=== PATIENT | female | born 1945 | race Hispanic/Latino ===

== ENCOUNTER 2017-09-06 08:04 | Inpatient (IN) | payer OTHER, MEDICARE ==
[~2017-09-06] VITALS: Ht 157.5 cm; Wt 63.8 kg
[~2017-09-06 08:04] MED LIST: AMLO1CAP12 PO; FOLI1TAB61 PO; LEVOTHYROXINE PO; PRAVASTATIN PO
[2017-09-06 08:49] LABS: BASOPHILS % (AUTO) 0.2 % (0.0-5.0); EOSINOPHILS % (AUTO) 0.5 % (0.0-8.0); HEMATOCRIT 35.5 % (36-48); LYMPHOCYTES % (AUTO) 14.7 % (21.0-51.0); MEAN CORPUSCULAR HEMOGLOBIN 31.3 pg (27.0-33.0); MEAN CORPUSCULAR HGB CONC 33.4 g/dL (32.0-36.0); MEAN CORPUSCULAR VOLUME 93.7 fL (79-99); MONOCYTES % (AUTO) 7.7 % (3.0-13.0); NEUTROPHILS % (AUTO) 76.9 % (40.0-77.0); PLATELET COUNT (AUTO) 251 K/uL (130-400); RED BLOOD CELL COUNT(AUTO) 3.79 MIL/uL (4.00-5.50); RED CELL DISTRIBUTION WIDTH 13.4 % (11.0-15.5); WHITE BLOOD COUNT (AUTO) 12.7 K/uL (4.8-10.8)
[2017-09-06 08:57] LABS: CREATININE 1.5 mg/dL (0.5-1.5); POTASSIUM 4.2 mmol/L (3.5-5.1)
[2017-09-06 09:00] LABS: INR 1.06 (0.85-1.15); PARTIAL THROMBOPLASTIN TIME 26.1 SEC (26.3-35.5); PROTHROMBIN TIME 11.1 SEC (9.6-11.6)
[2017-09-06 09:13] LABS: ALBUMIN 3.7 g/dL (3.5-5.0); BILIRUBIN,TOTAL 0.2 mg/dL (0.2-1.0); CREATINE KINASE MB 0.5 ng/mL (0.5-3.6); TOTAL PROTEIN, SERUM 7.9 g/dL (6.0-8.3)
[2017-09-06] MEDS ORDERED: MORPHINE SULFATE 4 MG/1ML SYG ONE (09:23)
[2017-09-06] MEDS ORDERED: ASPIRIN 325 MG TABLET ONE (09:23)
[2017-09-06] MEDS ORDERED: LACTATED RINGERS 1000ML 1,000 ML IV ONE (09:36)
[2017-09-06] MEDS ORDERED: DEXTROSE 5 % AND 0.9 % NACL 1,000 ML IV ONE (10:49)
[2017-09-06] MEDS ORDERED: ZOSYN 3.375GM+NS 50ML 50 ML IV ONE (10:49)
[2017-09-06 15:55] VITALS: BP 125/59
[2017-09-06] MEDS ORDERED: HYDRALAZINE HCL 20 MG/ML VIAL IV PRN (18:30)
[2017-09-06] MEDS ORDERED: IOPAMIDOL-370 75 ML VIAL IV ONE (19:46)
[2017-09-06 19:57] VITALS: BP 108/56
[2017-09-06] MEDS ORDERED: MORPHINE SULFATE 2 MG/ML 1ML SYG IVP PRN (20:30)
[2017-09-06] MEDS ORDERED: ONDANSETRON HCL 4 MG/2 ML VIAL IVP PRN (20:30)
[2017-09-06] MEDS: SODIUM CHLORIDE 0.9% 1000ML 1,000 ML IV SCH (21:07)
[2017-09-06] MEDS: ZOSYN 3.375GM+NS 50ML 50 ML IV SCH (22:53)
[2017-09-06] MEDS ORDERED: AMLO-128 PO (23:14)
[2017-09-06] MEDS ORDERED: VIT1TABL75 PO (23:14)
[2017-09-06] MEDS ORDERED: PRAV20TA4 PO (23:14)
[2017-09-06 23:54] VITALS: BP 102/55
[2017-09-07 04:00] VITALS: BP 118/61
[2017-09-07 05:08] LABS: HEMATOCRIT 33.1 % (36-48); MEAN CORPUSCULAR HEMOGLOBIN 32.9 pg (27.0-33.0); MEAN CORPUSCULAR HGB CONC 34.9 g/dL (32.0-36.0); MEAN CORPUSCULAR VOLUME 94.2 fL (79-99); PLATELET COUNT (AUTO) 247 K/uL (130-400); RED BLOOD CELL COUNT(AUTO) 3.52 MIL/uL (4.00-5.50); RED CELL DISTRIBUTION WIDTH 13.6 % (11.0-15.5); WHITE BLOOD COUNT (AUTO) 11.1 K/uL (4.8-10.8)
[2017-09-07 05:31] LABS: ALBUMIN 3.2 g/dL (3.5-5.0); BILIRUBIN,TOTAL 0.4 mg/dL (0.2-1.0); CREATININE 1.4 mg/dL (0.5-1.5); MAGNESIUM 2.3 mg/dL (1.80-2.40); PHOSPHORUS 4.3 mg/dL (2.5-4.9); POTASSIUM 4.4 mmol/L (3.5-5.1); THYROID STIMULATING HORMONE 3.2 uIU/mL (0.36-3.74); TOTAL PROTEIN, SERUM 7.1 g/dL (6.0-8.3)
[2017-09-07] MEDS: LEVOTHYROXINE 25 MCG TABLET PO SCH (06:23)
[2017-09-07 07:53] VITALS: BP 113/56
[2017-09-07] MEDS: SODIUM CHLORIDE 0.9% 1000ML 1,000 ML IV SCH ×5 (07:59→16:16)
[2017-09-07 11:19] VITALS: BP 119/63
[2017-09-07] MEDS: ZOSYN 3.375GM+NS 50ML 50 ML IV SCH ×2 (11:21→22:57)
[2017-09-07 16:20] VITALS: BP 121/60
[2017-09-07 20:24] VITALS: BP 111/56
[2017-09-08] VITALS (7 sets, daily range): BP systolic 110–122; BP diastolic 61–71
[2017-09-08] MEDS: LEVOTHYROXINE 25 MCG TABLET PO SCH (04:56)
[2017-09-08 05:18] LABS: HEMATOCRIT 34.2 % (36-48); MEAN CORPUSCULAR HEMOGLOBIN 31.5 pg (27.0-33.0); MEAN CORPUSCULAR HGB CONC 33.2 g/dL (32.0-36.0); MEAN CORPUSCULAR VOLUME 94.8 fL (79-99); NUCLEATED RED BLOOD CELLS 0.1 % (0.0-0.19); PLATELET COUNT (AUTO) 242 K/uL (130-400); RED BLOOD CELL COUNT(AUTO) 3.61 MIL/uL (4.00-5.50); RED CELL DISTRIBUTION WIDTH 13.4 % (11.0-15.5); WHITE BLOOD COUNT (AUTO) 10.4 K/uL (4.8-10.8)
[2017-09-08 05:36] LABS: CREATININE 1.4 mg/dL (0.5-1.5); POTASSIUM 4.2 mmol/L (3.5-5.1)
[2017-09-08 05:40] LABS: LYMPHOCYTES % (MANUAL) 10 % (22-44); MAN.DIFF COMMENT-IMPRESSION MANUAL DIFFERENTIAL; MONOCYTES % (MANUAL) 3 % (2-9); PLATELET MORPHOLOGY COMMENT ADEQUATE; SEGMENTED NEUTROPHILS % 87 % (40-70)
[2017-09-08] MEDS: ENOXAPARIN SODIUM 40 MG/0.4 ML SYRINGE SQ SCH (08:13)
[2017-09-08] MEDS: ZOSYN 3.375GM+NS 50ML 50 ML IV SCH ×2 (11:15→23:19)
[2017-09-08] MEDS: SODIUM CHLORIDE 0.9% 1000ML 1,000 ML IV SCH (16:34)
[2017-09-09 03:00] VITALS: BP 116/71
[2017-09-09] MEDS: LEVOTHYROXINE 25 MCG TABLET PO SCH (06:10)
[2017-09-09 07:39] VITALS: BP 123/57
[2017-09-09] MEDS: ENOXAPARIN SODIUM 40 MG/0.4 ML SYRINGE SQ SCH (08:56)
[2017-09-09 10:25] LABS: CREATININE 1.3 mg/dL (0.5-1.5); POTASSIUM 4.1 mmol/L (3.5-5.1)
[2017-09-09 11:16] VITALS: BP 103/59
[2017-09-09] MEDS: ZOSYN 3.375GM+NS 50ML 50 ML IV SCH ×2 (11:22→23:33)
[2017-09-09 16:13] VITALS: BP 122/69
[2017-09-09 20:00] VITALS: BP 126/75
[2017-09-09] MEDS: SODIUM CHLORIDE 0.9% 1000ML 1,000 ML IV SCH ×2 (20:45→23:33)
[2017-09-10] VITALS: BP 114/62
[2017-09-10 04:00] VITALS: BP 117/65
[2017-09-10 04:42] LABS: HEMATOCRIT 33.4 % (36-48); MEAN CORPUSCULAR HEMOGLOBIN 32.3 pg (27.0-33.0); MEAN CORPUSCULAR HGB CONC 34.5 g/dL (32.0-36.0); MEAN CORPUSCULAR VOLUME 93.5 fL (79-99); PLATELET COUNT (AUTO) 225 K/uL (130-400); RED BLOOD CELL COUNT(AUTO) 3.57 MIL/uL (4.00-5.50); RED CELL DISTRIBUTION WIDTH 13.1 % (11.0-15.5); WHITE BLOOD COUNT (AUTO) 8.3 K/uL (4.8-10.8)
[2017-09-10 04:53] LABS: CREATININE 1.2 mg/dL (0.5-1.5)
[2017-09-10] MEDS: LEVOTHYROXINE 25 MCG TABLET PO SCH (05:26)
[2017-09-10 07:20] VITALS: BP 141/60
[2017-09-10] MEDS: ZOSYN 3.375GM+NS 50ML 50 ML IV SCH ×2 (10:37→22:55)
[2017-09-10] MEDS: ENOXAPARIN SODIUM 40 MG/0.4 ML SYRINGE SQ SCH (10:37)
[2017-09-10 11:00] VITALS: BP 134/63
[2017-09-10 16:00] VITALS: BP 142/71
[2017-09-10 19:41] VITALS: BP 127/60
[2017-09-10] MEDS: SODIUM CHLORIDE 0.9% 1000ML 1,000 ML IV SCH (22:56)
[2017-09-11] VITALS: BP 120/61
[2017-09-11 04:00] VITALS: BP 120/68
[2017-09-11] MEDS: SODIUM CHLORIDE 0.9% 1000ML 1,000 ML IV SCH (04:12)
[2017-09-11 04:47] LABS: HEMATOCRIT 31.1 % (36-48); MEAN CORPUSCULAR HEMOGLOBIN 32.7 pg (27.0-33.0); MEAN CORPUSCULAR VOLUME 93.2 fL (79-99); PLATELET COUNT (AUTO) 217 K/uL (130-400); RED BLOOD CELL COUNT(AUTO) 3.34 MIL/uL (4.00-5.50); RED CELL DISTRIBUTION WIDTH 12.9 % (11.0-15.5); WHITE BLOOD COUNT (AUTO) 7.9 K/uL (4.8-10.8)
[2017-09-11 04:48] LABS: BILIRUBIN,TOTAL 0.3 mg/dL (0.2-1.0); CREATININE 1.3 mg/dL (0.5-1.5); POTASSIUM 3.8 mmol/L (3.5-5.1); TOTAL PROTEIN, SERUM 6.9 g/dL (6.0-8.3)
[2017-09-11] MEDS: LEVOTHYROXINE 25 MCG TABLET PO SCH (05:54)
[2017-09-11 08:08] VITALS: BP 142/69
[2017-09-11] MEDS: ENOXAPARIN SODIUM 40 MG/0.4 ML SYRINGE SQ SCH (08:46)
[2017-09-11 11:22] VITALS: BP 108/70
== END 2017-09-11 14:15 | disposition home or self-care (01) | DRG 440 ==
LOC: EDH 08:04 → EDHIP 10:21 → OBSVTOIN 10:21 → 4BH 16:45
PROVIDERS: ADMIT Internal Medicine Critical Care Medicine; ATTEND Internal Medicine Critical Care Medicine
DX: K85.90 Acute pancreatitis without necrosis or infection, unspecified (principal); R07.89 Other chest pain; E03.9 Hypothyroidism, unspecified; E78.5 Hyperlipidemia, unspecified; I10 Essential (primary) hypertension; E78.00 Pure hypercholesterolemia, unspecified; Z88.8 Allergy status to other drugs, medicaments and biological substances; Z88.2 Allergy status to sulfonamides; Z90.710 Acquired absence of both cervix and uterus
CPT/HCPCS: 36415; 71045; 71275; 76705; 80048; 80053; 80061; 82150; 82550; 82553; 83605; 83690; 83735; 84100; 84443; 84484; 85025; 85027; 85378; 85610; 85730; 93005; 93970; J1650; J2270; J2543; J7030; J7042; J7120; Q9967

== ENCOUNTER → 2017-09-27 | Outpatient (CLI) | payer OTHER, MEDICARE ==
[~2017-09-27] MED LIST changes: +AMLO-128 PO; -AMLO1CAP12 PO; -FOLI1TAB61 PO; +PRAV20TA4 PO; -PRAVASTATIN PO; +VIT1TABL75 PO
== END | disposition home or self-care (01) ==
LOC: OIH 07:53
PROVIDERS: ATTEND Family Medicine
DX: Z09 Encounter for follow-up examination after completed treatment for conditions other than malignant neoplasm (principal); I70.0 Atherosclerosis of aorta
CPT/HCPCS: 74150

== ENCOUNTER → 2021-11-03 | Outpatient (CLI) | payer OTHER ==
[~2021-11-03] MED LIST changes: -AMLO-128 PO; +AMLO-142 PO; +LEVO500T2 PO; +METR-172 PO
== END | disposition home or self-care (01) ==
LOC: RAH 13:33
PROVIDERS: ATTEND Internal Medicine Cardiovascular Disease
DX: Z13.6 Encounter for screening for cardiovascular disorders (principal); R07.9 Chest pain, unspecified
CPT/HCPCS: 75571

== ENCOUNTER 2024-09-11 09:50 | Observation (INO) | payer OTHER ==
[~2024-09-11] VITALS: Ht 154.9 cm; Wt 59.0 kg
[~2024-09-11 09:50] MED LIST changes: -PRAV20TA4 PO; +PRAV20TA59 PO
--- NOTE | 2024-09-11 10:11 | EKG ---
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
[2024-09-11] MEDS: TETRACAINE HCL 0.5% 4 ML OPHTH SOLN OP STA (10:14)
[2024-09-11 10:15] LABS: BASOPHILS # (AUTO) 0.02 K/uL (0.00-0.20); BASOPHILS % (AUTO) 0.2 % (0.0-5.0); EOSINOPHILS # (AUTO) 0.29 K/uL (0.00-0.70); EOSINOPHILS % (AUTO) 3.6 % (0.0-8.0); HEMATOCRIT 31.9 % (36-48); IMMATURE GRANULOCYTE ABSOLUTE 0.03 K/uL (0-1); LYMPHOCYTES # (AUTO) 1.2 K/uL (1.0-4.8); LYMPHOCYTES % (AUTO) 15.4 % (21.0-51.0); MEAN CORPUSCULAR HGB CONC 33.2 g/dL (32.0-36.0); MEAN CORPUSCULAR VOLUME 96.4 fL (79-99); MONOCYTES # (AUTO) 0.6 K/uL (0.1-1.0); NEUTROPHILS # (AUTO) 5.8 K/uL (1.8-7.7); NEUTROPHILS % (AUTO) 72.4 % (40.0-77.0); PLATELET COUNT (AUTO) 164 K/uL (130-400); RED BLOOD CELL COUNT(AUTO) 3.31 MIL/uL (4.00-5.50); RED CELL DISTRIBUTION WIDTH 12.8 % (11.0-15.5); WHITE BLOOD COUNT (AUTO) 8.1 K/uL (4.8-10.8)
[2024-09-11 10:27] LABS: CREATININE 1.9 mg/dL (0.5-1.0); MAGNESIUM 2.1 mg/dL (1.80-2.40); POTASSIUM 4.2 mmol/L (3.5-5.1)
[2024-09-11 11:08] LABS: APPEARANCE,URINE CLOUDY (CLEAR); BILIRUBIN,URINE NEGATIVE (NEGATIVE); COLOR,URINE LIGHT-YELLOW (YELLOW); GLUCOSE, URINE (UA) NEGATIVE (NEGATIVE); KETONES,URINE NEGATIVE (NEGATIVE); LEUKOCYTE ESTERASE ,URINE 500 Leu/uL (NEGATIVE); NITRATE,URINE NEGATIVE (NEGATIVE); OCCULT BLOOD,URINE NEGATIVE (NEGATIVE); PH,URINE 5.5 (5.0-8.0); PROTEIN,URINE NEGATIVE (NEGATIVE); UROBILINOGEN,URINE 0.2 mg/dL (0.2-1.0)
[2024-09-11 11:13] LABS: ADD UA MICROSCOPIC YES
--- NOTE | 2024-09-11 11:43 | HMCIMG ---
CHEST 1VW HISTORY: Chest pain COMPARISON: 12/03/2017 FINDINGS: A frontal projection of the chest was obtained. No acute pulmonary infiltrates is seen. The heart is borderline enlarged. Prominent interstitial markings are seen. Degenerative changes are seen. Aortic calcifications are seen. IMPRESSION: 1. No acute pulmonary infiltrate is seen.
[2024-09-11 11:50] LABS: MUCUS,URINE RARE LPF (None Seen); SQUAMOUS EPITHELIAL CELL,UR RARE /HPF (0-2); WBC CLUMP MOD /HPF (0-1); WBC,URINE >100 /HPF (0-1)
[2024-09-11 11:51] LABS: BACTERIA,URINE Moderate /HPF (None Seen)
--- NOTE | 2024-09-11 12:01 | ERN ---
General Chief Complaint: Chest Pain Stated Complaint: CHEST PAIN ONSET YESTERDAY, LT EYE PAIN Time Seen by MD: 09:55 Source: patient History of Present Illness Initial Comments Patient is a 78-year-old female coming in to be evaluated for multiple comp laints. Per patient she has been having left eye discomfort for two days. Along with the eye discomfort patient has been having left-sided chest discomfort as well. She states that she woke up with the discomfort. Appropriate or chills Allergies: Coded Allergies: sulfamethoxazole (Unverified Allergy, Intermediate, 05/14/14) RASH / ITCHING trimethoprim (Unverified Allergy, Intermediate, 05/14/14) RASH / ITCHING Uncoded Allergies: FINOFIBRATE (Allergy, Mild, RASH, ITCHING, 09/30/12) Home Meds Active Scripts Metronidazole (Metronidazole) 500 Mg Tablet, 500 MG PO TID for 5 Days, #15 TAB Prov:[facility] 12/06/17 Levofloxacin (Levaquin) 500 Mg Tablet, 500 MG PO DAILY for 5 Days, #5 TAB Prov:[facility] 12/06/17 Reported Medications Pravastatin Sodium (Pravastatin Sodium) 20 Mg Tablet, 20 MG PO HS, TAB 09/06/17 Amlodipine Besylate/Benazepril (Amlodipine-Benazepril 10-40 mg) 1 Each Capsule, 1 EACH PO AM, CAP 09/06/17 Vit B Cmplx 3/FA/Vit C/Biotin (Vol-Care Rx Tablet) 1 Each Tablet, 1 EACH PO AM, TAB 09/06/17 [Levothyroxine ] No Conflict Check, 25 MCG PO ACBKFST 05/14/14 Past Medical History Past Medical History: High Cholesterol, Hypertension Medical History Other: THYROID Past Surgical History: Other Surgical History Other: INTESTINES ROS Dictation CONSTITUTIONAL: No chills, no fever, no weakness, no diaphoresis, no malaise. HEAD/FACE: No signs of trauma. EENT: No eye pain, no blurred vision, tearing, no double vision, no ear pain, no ear discharge, no nose pain, no nasal congestion, no throat pain, no throat swelling, no mouth pain. RESPIRATORY: No cough, no orthopnea, no SOB, no stridor, no wheezing. CARDIOVASCULAR: chest pain, no edema, no palpitations, no syncope. GASTROINTESTINAL/ABDOMINAL: No abdominal pain, no constipation, no diarrhea, no nausea, no vomiting. GENITOURINARY: No abnormal discharge, no dysuria, no frequent urination, no hematuria. No complaints of pain in the genitals. MUSCULOSKELETAL: No back pain, no gout, no joint pain, no joint swelling, no muscle pain, no muscle stiffness, no neck pain. INTEGUMENTARY: No change in color, no change in hair/nails, no dryness, no lesion, no lumps, no rash. NEUROLOGICAL/PSYCH: No anxiety, not depressed, no emotional problem, no headache, no numbness, no pre-existing deficit, no history of seizures, no tremors, no weakness. HEMATOLOGIC/LYMPHATIC: Not anemic, no history of blood clots, no apparent bleeding, no bruising, glands not swollen. All Systems Negative, Except as Noted. Physical Exam Physical Exam Dictation VITAL SIGNS: Reviewed. GENERAL APPEARANCE: Alert, oriented x3, no acute distress, obese. HEAD AND FACE: Non-traumatic. EYES: PERRL, pink conjunctivas, eyelid no trauma, left eye conjunctivitis, conjunctival injections erythema EARS: Pinnas intact and no signs of trauma or erythema. Ear canals clear and no discharge. TMs no erythema. NOSE: No discharge, no bleeding. OROPHARYNX: Mouth normal, teeth no caries, tongue pink. Pharynx clear, no erythema. Tonsils no exudates, no abscesses noted. Mucous membrane moist. NECK: Supple, non-tender, no thyromegaly, no masses, no JVD, no bruits. BREAST: Deferred. CHEST: No tenderness, no crepitus, no paradoxical movement, no retractions. LUNGS: Clear, well-ventilated, symmetric, no rales, no wheezing, no rhonchi, no stridor, good breath sounds bilaterally. HEART: Regular rate, regular rhythm, no murmur, no gallops. VASCULAR: No peripheral edema. ABDOMEN: Soft, positive bowel sounds, nondistended, no guarding, nontender, no rebound, no masses no hepatomegaly, no splenomegaly, no Ng's sign, no hernias. RECTAL: Deferred. GENITAL: Deferred. NEUROLOGICAL: Normal speech, gross motor function intact, gross sensory function intact. MUSCULOSKELETAL: Neck nontender, full range of motion, back nontender, full range of motion. EXTREMITIES: Nontender, full range of motion. SKIN: Color pink, dry, no turgor, no rash, no lacerations, no abrasions, no contusions. LYMPHATICS: Deferred. Results Laboratory and Microbiology Lab and Micro Result Laboratory Tests Test 09/11/24 10:07 09/11/24 10:52 White Blood Count 8.1 K/uL (4.8-10.8) Red Blood Count 3.31 MIL/uL (4.00-5.50) L Hemoglobin 10.6 g/dL (12.0-16.0) L Hematocrit 31.9 % (36-48) L Mean Corpuscular Volume 96.4 fL (79-99) Mean Corpuscular Hemoglobin 32.0 pg (27.0-33.0) Mean Corpuscular Hemoglobin Concent 33.2 g/dL (32.0-36.0) Red Cell Distribution Width 12.8 % (11.0-15.5) Platelet Count 164 K/uL (130-400) Mean Platelet Volume 10.8 fL (7.5-10.5) H Immature Granulocyte % (Auto) 0.4 % (0-1) Neutrophils (%) (Auto) 72.4 % (40.0-77.0) Lymphocytes (%) (Auto) 15.4 % (21.0-51.0) L Monocytes (%) (Auto) 8.0 % (3.0-13.0) Eosinophils (%) (Auto) 3.6 % (0.0-8.0) Basophils (%) (Auto) 0.2 % (0.0-5.0) Neutrophils # (Auto) 5.8 K/uL (1.8-7.7) Lymphocytes # (Auto) 1.2 K/uL (1.0-4.8) Monocytes # (Auto) 0.6 K/uL (0.1-1.0) Eosinophils # (Auto) 0.29 K/uL (0.00-0.70) Basophils # (Auto) 0.02 K/uL (0.00-0.20) Absolute Immature Granulocyte (auto 0.03 K/uL (0-1) Nucleated Red Blood Cells 0.0 % (0.0-0.19) Sodium Level 137 mmol/L (136-145) Potassium Level 4.2 mmol/L (3.5-5.1) Chloride Level 108 mmol/L (101-111) Carbon Dioxide Level 21 mmol/L (21-32) Blood Urea Nitrogen 34 mg/dL (7-18) H Creatinine 1.9 mg/dL (0.5-1.0) H Glomerular Filtration Rate Calc 27 mL/min (>90) Random Glucose 104 mg/dL (70-105) Total Calcium 8.4 mg/dL (8.5-10.1) L Magnesium Level 2.10 mg/dL (1.80-2.40) Total Creatine Kinase 77 U/L (21-232) # Troponin I High Sensitivity 6 ng/L (4-50) Urine Color LIGHT-YELLOW (YELLOW) Urine Appearance CLOUDY (CLEAR) H Urine pH 5.5 (5.0-8.0) Urine Specific [place] 1.006 (1.001-1.031) Urine Protein NEGATIVE mg/dL (NEGATIVE) Urine Glucose (UA) NEGATIVE mg/dL (NEGATIVE) Urine Ketones NEGATIVE mg/dL (NEGATIVE) Urine Occult Blood NEGATIVE (NEGATIVE) Urine Nitrate NEGATIVE (NEGATIVE) Urine Bilirubin NEGATIVE mg/dL (NEGATIVE) Urine Urobilinogen 0.2 mg/dL (0.2-1.0) Urine Leukocyte Esterase 500 August/uL (NEGATIVE) H Urine RBC 2-5 /HPF (0-1) H Urine WBC >100 /HPF (0-1) H Urine WBC Clumps (Auto) MOD /HPF (0-1) Urine Squamous Epithelial Cells RARE /HPF (0-2) Urine Bacteria Moderate /HPF (None Seen) H Labs Reviewed?: Yes EKG/XRAY/US/CT/MRI EKG Comment 09/11/2024 time 10:05 a.m. Ventricular rate 64 Sinus rhythm Right bundle-branch block No ST wave elevation or depression X-RAY Comment [place] [address] [address] IMAGING REPORT Signed PATIENT: LIANE MARQUEZ MR#: [id number] : 1945 SEX: F AGE: 78 LOCATION: ED ORDER 1001 STATUS: REG ER REPORT#: [id number] SERVICE 1000 REASON: cp ORDERING PHYSICIAN: JANICE SALAZAR MD PROCEDURE: CXR1VW - CHEST 1VW CHEST 1VW HISTORY: Chest pain COMPARISON: 12/03/2017 FINDINGS: A frontal projection of the chest was obtained. No acute pulmonary infiltrates is seen. The heart is borderline enlarged. Prominent interstitial markings are seen. Degenerative changes are seen. Aortic calcifications are seen. IMPRESSION: 1. No acute pulmonary infiltrate is seen. DICTATED BY: RACHEL FALL MD DATE: 09/11/24 1140 ELECTRONICALLY SIGNED BY: RACHEL FALL MD DATE: 09/11/24 1143 [facility] MDM: Differential diagnosis: Costochondritis, conjunctivitis, chest wall discomfort, NSTEMI, Rationale: Tests considered and ordered secondary to shared decision making include: Previous outside records reviewed: Old ER visits. Risk of complication and/or morbidity or mortality of patient management: None Medications-Per medication reconciliation Need for hospitalization: Patient does not meet criteria for hospitalization. Patient is a 78-year-old female coming in to be evaluated for multiple complaints. Patient states that she has been having irritation in discharge of the left eye. On physical exam there is no foreign body but discharge and erythema. Patient also states that she has been having mild discomfort in her chest which at the moment has not been having a today. Patient is a under lot of stress. On patient will be discharged in stable condition with a diagnosis of conjunctivitis with stress. ED Course Orders Procedure Category Date Status Time Cbc With Differential LAB 09/11/24 Complete 10:00 Chest 1vw RAD 09/11/24 Resulted 10:00 12 Lead Ekg Tracing- EKG 09/11/24 Complete Technical 10:00 Magnesium LAB 09/11/24 Complete 10:00 Creatine Kinase, Total LAB 09/11/24 Complete 10:00 Troponin I High LAB 09/11/24 Complete Sensitivity 10:00 Urinalysis Profile LAB 09/11/24 Complete 10:00 Basic Metabolic Panel LAB 09/11/24 Complete 10:00 Tetracaine Hcl PHA 09/11/24 Complete (Pontocaine 0.5% 10:00 Culture Urine DEMETRICE 09/11/24 In Process 11:14 Current Medications Medications (Trade) Dose Ordered Sig/Brenda Route PRN Reason Start Time Stop Time Status Last Admin Dose Admin Tetracaine HCl (Pontocaine 0.5% Ophth Soln) 2 DROP OP ONCE STAT OP 09/11/24 10:00 09/11/24 10:03 DC 09/11/24 10:14 Vital Signs Date Time Temp Pulse Resp B/P (MAP) Pulse Ox O2 Delivery O2 Flow Rate FiO2 09/11/24 11:40 98.1 61 16 104/52 99 Room Air* 0 21 09/11/24 10:07 98.1 59 14 113/48 99 Room Air* 0 21 09/11/24 09:56 98.2 67 16 111/52 99 Room Air 0 DX & DISP Disposition: Discharge Departure Impression: Primary Impression: Conjunctivitis Additional Impression: Stress at home Condition: Stable Scripts Bill/Polymyx B Sulf/Dexameth (Maxitrol Ophth Susp) 3.5 Mg/Ml-10,000 Unit/Ml-0.1 % Opsus 1 DROP OP QID for 7 Days, #5 ML 0 Refills Prov: JANICE SALAZAR MD 09/11/24 Additional Instructions: You have been reviewed in the emergency department at [facility] after presenting with chest pain. After considering your history, your risk factors, your EKG and your blood test troponins, have been found to be at very low risk less than (1 in 100) of having a major adverse cardiac event (like heart attack) in the near future. In the " low risk" group, the risks of doing further tests and treatment as the inpatient outweighs the benefits. In many patients in the low risk group for the test of any sort or unnecessary, however he should discuss this further with his general practitioner who will understand the medical and personal backgrounds better. Because we have never declared you" no risk" we would suggest. 1 returning for medical review if you have further episodes of chest pain/arm pain or other concerning symptoms like dizziness, collapse, palpitations or shortness of breath. 2. Following up with your local doctor who will consider the need for further testing and will also ensure that any modifiable risk factors you may have for heart disease are optimally managed. Patient will be discharged in stable condition at the moment discharge patient states , no chest pain Referrals: RESHMA CHANDLER DO (PCP) Time of Disposition: 13:19 JANICE SALAZAR MD Sep 11, 2024 12:01
[2024-09-11] MEDS ORDERED: MAXIOS OP (13:19)
[2024-09-11] MEDS: cefTRIAXone 1G VIAL IVPB ONE (14:26)
[2024-09-11] MEDS: 0.9%NACL 1000ML 1,000 ML IV ONE (14:27)
--- NOTE | 2024-09-11 15:18 | NUR ---
DCP: HOME Daughter Anali lives at home with pt. Dgtrs Delma [phone] and Sadie [phone] are ER contacts. Pt states she remains active and independent, drives, requires no DME or in home care services. PCP is Scott Berger and uses [facility] for rx needs Addendum: 09/11/24 at 1519 by SHEILA FIGUEROA SS Amended: Links added.
[2024-09-11] MEDS ORDERED: ondanSETRON 4MG INJ IVP PRN (17:30)
[2024-09-11] MEDS ORDERED: HYDROcodone/APAP 5/325 1 TAB TABLET PO PRN (17:30)
[2024-09-11] MEDS: cefTRIAXone 1G VIAL IVP SCH (17:30)
[2024-09-11] MEDS ORDERED: LACTULOSE 20 GM/30 ML UDCUP PO PRN (17:30)
[2024-09-11] MEDS ORDERED: acetaMINOPHEN 325 MG TAB PO PRN (17:30)
[2024-09-11] MEDS ORDERED: morPHINE 4 MG SYG IVP PRN (17:30)
[2024-09-11] MEDS ORDERED: hydrALAZine 20MG/ML VIAL IV PRN (17:30)
[2024-09-11] MEDS: 0.9%NACL 1000ML 1,000 ML IV SCH (17:50)
--- NOTE | 2024-09-11 21:47 | HP ---
[facility] HISTORY & PHYSICAL Date Patient Seen: Sep 11, 2024 Time of Visit: 21:46 Supervising Physician: Dr. Carrasco Primary Care Physician: RESHMA Hays Outpatient Specialists: Dr. Wilson, labor relations worker Inpatient Consults: PROBLEM LIST: Chest pain, POA, rule out ACS Conjunctivitis, POA Acute complicated cystitis, POA Anemia of chronic disease, POA Dehydration, POA Anxiety/ acute stress, POA Acute kidney injury, GFR 27 Acute on chronic kidney disease, POA (GFR 34-47 in 2018, no prior GFR to compare) Hypertension Hypercholesteremia Hypothyroidism History of anxiety HPI: Ms. Herrera is a 78-year-old female with a history of HTN, HDL, CKD, and hypothyroidism who [place] [facility] [place] for evaluation of left eye discomfort onset two days, left-sided chest pain, and stress at home. The patient reported that she woke up with this chest discomfort today. She did not see her PCP for the eye problem. EKG: Heart rate 64 beats per minute, sinus rhythm, right BB be, no ST elevations or depressions. Chest x-ray: No acute cardiopulmonary infiltrates is seen. Troponin 6. UA: Cloudy, positive for leuk EST. In ED the patient received NS1 L bolus, tetracaine two drops, and Rocephin1 g. ED provider originally marked the patient as discharged home due to having a "very low risk of having a major adverse cardiac event". ED provider then decided to admit the patient with a history of UTI, dehydration, GIUSEPPE, conjunctivitis. I assessed the patient at bedside in room number ED 17. Daughter was at bedside. Patient's breathing was even, unlabored, appeared comfortable, in no distress. Left eye: Sclera is red, teary. No yellow no green discharge. Patient reports that she sees Dr. Wilson for her low kidney function. She reports that the tell her the kidney function is okay. GFR 37-47 in 2018. No other GFR to compare. I informed the patient and daughter at bedside of labs, diagnostics, and plan of care. They verbalized understanding and are in agreement with the plan. Plan and assessment are listed below. PAST MEDICAL HX: see above PAST SURGICAL HX: Intestinal surgery SOCIAL HISTORY: No tobacco, ETOH, or illicit drug use Coded Allergies: sulfamethoxazole (Unverified Allergy, Intermediate, 05/14/14) RASH / ITCHING trimethoprim (Unverified Allergy, Intermediate, 05/14/14) RASH / ITCHING Uncoded Allergies: FINOFIBRATE (Allergy, Mild, RASH, ITCHING, 09/30/12) REVIEW OF SYSTEMS: 12 point ROS reviewed with patient. Pertinent positives mentioned above. Otherw ise negative. PHYSICAL EXAM: GENERAL: Alert, awake oriented x 3 HEENT: EOMI, Sclera non icteric, moist mucosa NECK: Supple, no JVD, trachea midline LUNGS: Clear breath sounds bilaterally. No wheezes HEART: Regular rate and rhythm. Normal S1 and S2, without murmurs ABD: Abdomen soft, nontender. Bowel sounds present EXT: No clubbing cyanosis or edema NEURO: Alert and oriented x3, follows commands Vital Signs (last 8hr) Date Time Temp Pulse Resp B/P (MAP) Pulse Ox O2 Delivery O2 Flow Rate FiO2 09/11/24 20:44 99.1 77 18 125/59 96 Room Air* 0 21 09/11/24 18:31 98.1 77 16 130/52 99 Room Air* 0 21 09/11/24 14:05 98.1 63 14 102/68 99 Room Air* 0 21 LABS: Hematology Labs: Test 09/11/24 10:07 Range/Units White Blood Count 8.1 4.8-10.8 K/uL Red Blood Count 3.31 L 4.00-5.50 MIL/uL Hemoglobin 10.6 L 12.0-16.0 g/dL Hematocrit 31.9 L 36-48 % Mean Corpuscular Volume 96.4 79-99 fL Mean Corpuscular Hemoglobin 32.0 27.0-33.0 pg Mean Corpuscular Hemoglobin Concent 33.2 32.0-36.0 g/dL Red Cell Distribution Width 12.8 11.0-15.5 % Platelet Count 164 130-400 K/uL Mean Platelet Volume 10.8 H 7.5-10.5 fL Immature Granulocyte % (Auto) 0.4 0-1 % Neutrophils (%) (Auto) 72.4 40.0-77.0 % Lymphocytes (%) (Auto) 15.4 L 21.0-51.0 % Monocytes (%) (Auto) 8.0 3.0-13.0 % Eosinophils (%) (Auto) 3.6 0.0-8.0 % Basophils (%) (Auto) 0.2 0.0-5.0 % Neutrophils # (Auto) 5.8 1.8-7.7 K/uL Lymphocytes # (Auto) 1.2 1.0-4.8 K/uL Monocytes # (Auto) 0.6 0.1-1.0 K/uL Eosinophils # (Auto) 0.29 0.00-0.70 K/uL Basophils # (Auto) 0.02 0.00-0.20 K/uL Absolute Immature Granulocyte (auto 0.03 0-1 K/uL Nucleated Red Blood Cells 0.0 0.0-0.19 % Chemistry Labs: Test 09/11/24 10:07 Range/Units Sodium Level 137 136-145 mmol/L Potassium Level 4.2 3.5-5.1 mmol/L Chloride Level 108 101-111 mmol/L Carbon Dioxide Level 21 21-32 mmol/L Blood Urea Nitrogen 34 H 7-18 mg/dL Creatinine 1.9 H 0.5-1.0 mg/dL Glomerular Filtration Rate Calc 27 >90 mL/min Random Glucose 104 70-105 mg/dL Total Calcium 8.4 L 8.5-10.1 mg/dL Magnesium Level 2.10 1.80-2.40 mg/dL Total Creatine Kinase 77 # 21-232 U/L Troponin I High Sensitivity 6 4-50 ng/L DIAGNOSTICS / RADIOLOGY RESULTS: [ ] PLAN -Admit to medical telemetry floor with continuous telemetry monitoring. -Troponin levels and EKG series. -2D echo in a.m. with heart clinic to read. -Rocephin 2 g IV daily. -Continue NS at 100 mL an hour overnight. -Start Tobradex eyedrops q.4 hours. -Reconciled home medications: Atorvastatin, gabapentin, levothyroxine, oxybutynin, amlodipine/benazepril. -p.r.n. medications for: Pain management, nausea, vomiting, constipation, hypertension, fever. -Oxygen supplement as needed to maintain oxygen levels equal to or greater than 92% -Nitroglycerin sublingual as needed chest pain -Aspirin 81 mg p.o. daily. -Blood pressure checks every 4 hours and as needed. -Reconcile home medications once available. -Glucometer checks before meals and at bedtime with insulin regular sliding scale. -AM labs. -Monitor renal and liver function. -Monitor electrolytes and treat accordingly. -DVT and GI prophylaxis: Lovenox and Pepcid. NEURO: Minimize central acting medications as possible. Maintain fall precautions, adequate lighting during the day PULMONARY: Supplemental 02 as needed. Maintain aspiration precautions at all times CARDIOVASCULAR: Follow hemodynamics. Vital signs per facility protocol GI & NUTRITION: Continue with nutritional support. Continue stool softeners and laxatives as needed. KIDNEYS & ELECTROLYTES: Strict monitoring of intake, output and overall fluid balance. Avoid nephrotoxic medications to the extent possible. Medications to be dosed according to renal function. Monitor electrolytes and replace as needed ENDOCRINE: Maintain blood glucose between 100-180 at all times. Hypoglycemia protocol in place INFECTIOUS DISEASE: Trend temperature, WBC and procalcitonin level Follow cultures, deescalate antibiotics as soon as possible. Panculture if new onset fever ONCOLOGY/HEMATOLOGY/COAGULATION: Monitor for s/s of bleeding Monitor hemoglobin, coagulation studies as needed SKIN: Pressure ulcer prevention per facility protocol Specialty mattress ORTHO/REHAB: Continue PT/OT Prophylaxis: Continue GI and DVT prophylaxis Code Status: Full Resuscitation Disposition: TBD ATTESTATION BY PHYSICIAN I attest that I reviewed and discussed the case with the Physician School Psychologist as well as agree with the Physician School Psychologist's findings, plans of care, and documentation above. Son Schumacher MD, LUCIA [facility] Sep 11, 2024 21:47
[2024-09-11] MEDS ORDERED: cefTRIAXone 2GM VIAL IVPB SCH (22:00)
[2024-09-11] MEDS ORDERED: TobRAMYCin/DEXAmethASONE OPTH SUSP 2.5 ML BOT OS SCH (22:30)
[2024-09-11] MEDS: TobRAMYCin/DEXAmethASONE OPTH SUSP 2.5 ML BOT OS SCH (22:49)
[2024-09-11] MEDS ORDERED: OXYB10TA30 PO (23:27)
[2024-09-11] MEDS ORDERED: LEVO25TA54 PO (23:27)
[2024-09-11] MEDS ORDERED: ATOR40TA71 PO (23:27)
[2024-09-11] MEDS ORDERED: GABA-529 PO (23:27)
[2024-09-11 23:28] VITALS: BP 118/67; PULSE 74; RESP 17; TEMP 99.3
[2024-09-12 00:15] VITALS: BP 125/75; PULSE 74; RESP 20; TEMP 98.2
[2024-09-12 01:11] VITALS: O2SAT 95
[2024-09-12 03:55] VITALS: BP 118/59; PULSE 60; RESP 16; TEMP 98.2
[2024-09-12 04:43] LABS: BASOPHILS # (AUTO) 0.03 K/uL (0.00-0.20); BASOPHILS % (AUTO) 0.4 % (0.0-5.0); EOSINOPHILS # (AUTO) 0.22 K/uL (0.00-0.70); EOSINOPHILS % (AUTO) 3.2 % (0.0-8.0); HEMATOCRIT 30.7 % (36-48); IMMATURE GRANULOCYTE ABSOLUTE 0.02 K/uL (0-1); LYMPHOCYTES # (AUTO) 1.2 K/uL (1.0-4.8); LYMPHOCYTES % (AUTO) 17.7 % (21.0-51.0); MEAN CORPUSCULAR HEMOGLOBIN 31.5 pg (27.0-33.0); MEAN CORPUSCULAR HGB CONC 31.9 g/dL (32.0-36.0); MEAN CORPUSCULAR VOLUME 98.7 fL (79-99); MONOCYTES # (AUTO) 0.7 K/uL (0.1-1.0); MONOCYTES % (AUTO) 10.1 % (3.0-13.0); NEUTROPHILS # (AUTO) 4.7 K/uL (1.8-7.7); NEUTROPHILS % (AUTO) 68.3 % (40.0-77.0); PLATELET COUNT (AUTO) 144 K/uL (130-400); RED BLOOD CELL COUNT(AUTO) 3.11 MIL/uL (4.00-5.50); RED CELL DISTRIBUTION WIDTH 12.7 % (11.0-15.5); WHITE BLOOD COUNT (AUTO) 6.9 K/uL (4.8-10.8)
[2024-09-12 05:06] LABS: HEMOGLOBIN A1C 5.8 % (4.0-6.0)
[2024-09-12 05:10] LABS: B-TYPE NATRIURETIC PEPTIDE 65 pg/mL (0-100)
[2024-09-12 05:15] LABS: CREATININE 1.3 mg/dL (0.5-1.0); MAGNESIUM 1.8 mg/dL (1.80-2.40); PHOSPHORUS 2.9 mg/dL (2.5-4.9); POTASSIUM 3.8 mmol/L (3.5-5.1); THYROID STIMULATING HORMONE 2.13 uIU/mL (0.36-3.74)
[2024-09-12] MEDS: levoTHYROxine 25 MCG TABLET PO SCH (06:15)
--- NOTE | 2024-09-12 07:34 | EKG ---
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
[2024-09-12 08:00] VITALS: BP 110/57; PULSE 62; RESP 19; TEMP 98.2
[2024-09-12] MEDS: cefTRIAXone 2GM VIAL IVPB SCH (09:46)
[2024-09-12 09:47] VITALS: O2SAT 99
[2024-09-12] MEDS: GABApentin 100 MG CAPSULE PO SCH (09:47)
[2024-09-12] MEDS: ASPIRIN 81MG CHEW TAB PO SCH (09:47)
[2024-09-12] MEDS: FAMOTIDINE 20MG TAB PO SCH (09:47)
[2024-09-12] MEDS: ENOXAPARIN SODIUM 30 MG/0.3 ML SQ SCH (09:51)
[2024-09-12] MEDS: BENAZEPRIL PO SCH (09:59)
[2024-09-12] MEDS: [UNRECOGNIZED DRUG - OTHER] PO SCH (09:59)
[2024-09-12] MEDS: AMLODIPINE BESYLATE PO SCH (09:59)
--- NOTE | 2024-09-12 11:47 | HMCIMG ---
CHEST 1VW HISTORY: Chest pain COMPARISON: 09/11/2024 FINDINGS: A frontal projection of the chest was obtained. No acute pulmonary infiltrates is seen. The heart is borderline enlarged. Degenerative changes are seen. Aortic calcifications are seen. IMPRESSION: 1. No acute pulmonary infiltrate is seen.
[2024-09-12 12:00] VITALS: BP 111/64; PULSE 67; RESP 19; TEMP 98.1
[2024-09-12] MEDS ORDERED: AMOX-426 PO (14:51)
--- NOTE | 2024-09-12 14:51 | DS ---
[facility] DISCHARGE SUMMARY Date Patient Seen: Sep 12, 2024 Time of Visit: 14:51 Supervising Physician: Dr. Son Carrasco Primary Care Physician: RESHMA Hays Outpatient Specialists: Dr. Wilson, anatomic pathologist Inpatient Consults: HOSPITAL COURSE: HPI (per admitting provider) Ms. Herrera is a 78-year-old female with a history of HTN, HDL, CKD, and hypothyroidism who presented to [facility] ED for evaluation of left eye discomfort o nset two days, left-sided chest pain, and stress at home. The patient reported that she woke up with this chest discomfort today. She did not see her PCP for the eye problem. EKG: Heart rate 64 beats per minute, sinus rhythm, right BB be, no ST elevations or depressions. Chest x-ray: No acute cardiopulmonary infiltrates is seen. Troponin 6. UA: Cloudy, positive for leuk EST. In ED the patient received NS1 L bolus, tetracaine two drops, and Rocephin1 g. ED provider originally marked the patient as discharged home due to having a "very low risk of having a major adverse cardiac event". ED provider then decided to admit the patient with a history of UTI, dehydration, GIUSEPPE, conjunct ivitis. I assessed the patient at bedside in room number ED 17. Daughter was at bedside. Patient's breathing was even, unlabored, appeared comfortable, in no distress. Left eye: Sclera is red, teary. No yellow no green discharge. Patient reports that she sees Dr. Wilson for her low kidney function. She reports that the tell her the kidney function is okay. GFR 37-47 in 2018. No other GFR to compare. I informed the patient and daughter at bedside of labs, diagnostics, and plan of care. They verbalized understanding and are in agreement with the plan. Plan and assessment are listed below. The patient was treated for the following problems: Patient was admitted with chest pain and conjunctivitis as well as acute complicated cystitis for which she was on Rocephin as well as tobramycin ophthalmic drops. Patient has had no further episodes of chest pain on this a dmission, her troponins remained within normal limits. Patient has been cleared for discharge at this time following her echocardiogram to complete her antibiotic regimen of Augmentin and tobramycin as outpatient. Advised to follow up with her PCP for repeat blood work to ensure resolution. ACTIVE PROBLEM LIST FOR THE HOSPITALIZATION: Chest pain, POA, rule out ACS Conjunctivitis, POA Acute complicated cystitis, POA CHRONIC PROBLEMS: continue previous management per PCP unless otherwise indicated Anemia of chronic disease, POA Dehydration, POA Anxiety/ acute stress, POA Acute kidney injury, GFR 27 Acute on chronic kidney disease, POA (GFR 34-47 in 2018, no prior GFR to compare) Hypertension Hypercholesteremia Hypothyroidism History of anxiety DRUG ENFORCEMENT ADMINISTRATION AGENT FINDINGS/RECOMMENDATIONS: [ ] PROCEDURES: as mentioned above DISCHARGE MEDICATIONS: Pt hemodynamically stable and afebrile at time of discharge. PCP notified of patients admission, hospital course and discharge. PHYSICAL EXAM: GENERAL: Alert, awake oriented x 3 HEENT: EOMI, Sclera non icteric, moist mucosa NECK: Supple, no JVD, trachea midline LUNGS: Clear breath sounds bilaterally. No wheezes HEART: Regular rate and rhythm. Normal S1 and S2, without murmurs ABD: Abdomen soft, nontender. Bowel sounds present EXT: No clubbing cyanosis or edema NEURO: Alert and oriented x3, follows commands FOLLOW-UP: Follow-up with PCP in 2-3 days RECOMMENDATIONS: See Discharge Instructions This case was seen and discussed with my supervising physician. More than 30 minutes spent on discharge process, including evaluation of the patient, discussion with nursing staff, medication reconciliation and follow-up appointments JOHNNY CHANDLER Sep 12, 2024 14:51
--- NOTE | 2024-09-12 16:49 | NUR ---
PATIENT DISCHARGED PERIPHERAL IV DISCONTINUED CATHETER INTACT. DISCHARGE INSTRUCTIONS GIVEN. PRESCRIPTIONS GIVEN. PATIENT AWARE TO F/U WITH DR. CHANDLER ON MONDAY 09/18 AT 3:15 PM. ALL QUESTIONS ANSWERED.
--- NOTE | 2024-09-12 17:47 | HMCIMG ---
US RENAL SONOGRAM HISTORY: No additional history given. COMPARISON: None TECHNIQUE: Renal and bladder ultrasound study was performed. FINDINGS: The right kidney measures 9.3 x 3.9 x 3.6 cm. The left kidney measures 10.3-4 0.1 x 4.2 cm. There are bilateral simple renal cysts with the largest on the right measuring 17 mm and on the left measuring 17 mm. The bladder is poorly distended. Bladder wall is thick measuring 5 mm. Both kidneys are echogenic consistent with medical renal disease. No evidence of hydronephrosis is seen of either kidney. IMPRESSION: 1. No hydronephrosis is seen. Bilateral simple renal cysts.
--- NOTE | 2024-09-12 20:50 | HMCSR ---
APPROVED REPORT EXAM: Two-dimensional and M-mode echocardiogram with Doppler and color Doppler. INDICATION ICD: Chest Pain 2D Dimensions RVDd3.9 cmLVEF(%)62.4 (>50%)LVED Vol(simp.)62.0 mL IVSd1.0 (0.7-1.1cm)FS(%)33 %LVES Vol(simp.)25.0 mL LVDd4.1 (3.8-5.6cm)LA (2D)3.7 (1.6-4.0cm)LVEF(%, simp.)59 % PWd0.9 (0.7-1.1cm)Ao Root(2D)3.0 (2.0-3.7cm)LA ESV INDEX (BP)32.39 mL/m2 IVSs1.0 cmLVOT diam2.0 (1.8-2.4cm) LVDs2.7 (2.5-4.0cm)IVC diam1.9 cm PWs0.9 cm Deformation Strain Apical 4-20.5 % Apical 2-18.9 % Apical 3-19.8 % Global Strain-19.8 % M-Mode Dimensions EPSS0.9 cm LA (MM)3.8 (1.6-4.0cm) Ao Root(MM)2.9 (2.0-3.7cm) Aortic Valve AoV Vmax1.5 m/Sam Peak GR8.9 mmHgLVOT Vmax1.0 m/s AoV VTI0.3 mAo Mean GR5.4 mmHgLVOT VTI0.24 m YAW (VMAX)2.03 cm2AVA (VTI) 2.1 cm2 Mitral Valve MV E Vmax80.9 cm/sDECEL Jwzy330 ms MV A Xawz902.1 cm/sP 1/2 T53 ms E/A ratio0.8MVA (PHT)4.1 cm2 TDI E/E' Nuxgtw40.7E/E' Bqpswav75.3 Medial E' Peak V5.16 cm/sLateral E' Peak V5.64 cm/s Pulmonary Valve PV Vmax0.9 m/sPV VTI0.22 mPV Mean GR2.2 mmHg PV Peak GR3.5 mmHgPI End Ghazal. Amor 100.5 cm/s Tricuspid Valve TR Vmax1.7 m/sRVSP10.9 mmHg TR Peak GR11.5 mmHg Left Ventricle The left ventricle is normal size. There is normal LV segmental wall motion. GLPS is -20%. There is n ormal left ventricular wall thickness. LVEF is 55-60%. Stage I diastolic dysfunction. Right Ventricle The right ventricle is normal size. The right ventricular systolic function is normal. Atria The left atrium size is normal. The right atrium size is normal. Aortic Valve The aortic valve is normal in structure. No aortic regurgitation is present. There is no aortic valvu lar stenosis. Mitral Valve The mitral valve is normal in structure. Mitral regurgitation is trace. There is no mitral valve sten osis. Tricuspid Valve The tricuspid valve is normal in structure. There is mild tricuspid valve regurgitation noted. Pulmonic Valve The pulmonary valve is normal in structure. There is trace pulmonic valvular regurgitation. Great Vessels The aortic root is normal in size. The IVC is normal in size and collapses <50% with inspiration. Pericardium There is no pericardial effusion. Conclusion There is normal left ventricular wall thickness. There is normal LV segmental wall motion. GLPS is -20%. LVEF is 55-60%. Stage I diastolic dysfunction. The aortic valve is normal in structure. There is no mitral valve stenosis. There is no pericardial effusion.
[2024-09-12] MEDS ORDERED: atorVAStatin 40 MG TABLET PO SCH (21:00)
== END 2024-09-12 16:30 | disposition home or self-care (01) ==
LOC: EDH 09:50 → EDHIP 17:22 → INTOOBSV 17:22 → 4DH 09-12 00:12
PROVIDERS: ADMIT Internal Medicine Critical Care Medicine; ATTEND Internal Medicine Critical Care Medicine
DX: H10.9 Unspecified conjunctivitis (principal); N30.00 Acute cystitis without hematuria; N17.9 Acute kidney failure, unspecified; I12.9 Hypertensive chronic kidney disease with stage 1 through stage 4 chronic kidney disease, or unspecified chronic kidney disease; N18.9 Chronic kidney disease, unspecified; K59.00 Constipation, unspecified; E86.0 Dehydration; D63.1 Anemia in chronic kidney disease; E03.9 Hypothyroidism, unspecified; F41.9 Anxiety disorder, unspecified; E78.00 Pure hypercholesterolemia, unspecified; Z88.2 Allergy status to sulfonamides; Z88.5 Allergy status to narcotic agent; Z79.899 Other long term (current) drug therapy
CPT/HCPCS: 96361 ×3; 96365; 99285; 82550; 83735 ×2; 84484 ×2; 80048 ×2; 85025 ×2; 87086 ×2; 87186; 81001; 36415 ×2; 71045 ×2; 93005 ×2; 96372; 96366; 83036; 84443; 84100; 83880; 76770; 93306; 93356; 76376; J7030 ×2; J0696 ×2; G0378 ×5; J1650

== ENCOUNTER 2024-09-14 10:41 | Emergency (ER) | payer OTHER ==
[~2024-09-14] VITALS: Ht 154.9 cm; Wt 61.2 kg
[~2024-09-14 10:41] MED LIST changes: +AMOX-426 PO; +ATOR40TA71 PO; +GABA-529 PO; +LEVO25TA54 PO; -LEVO500T2 PO; -LEVOTHYROXINE PO; -METR-172 PO; +OXYB10TA30 PO; -PRAV20TA59 PO; -VIT1TABL75 PO
[2024-09-14 10:45] VITALS: BP 106/62; PULSE 72; RESP 16; TEMP 98.6
--- NOTE | 2024-09-14 10:59 | ERN ---
General Chief Complaint: Eye Problems Stated Complaint: EYE GETTING WORSE,ITCHING,ALOT OF BLOOD Time Seen by MD: 10:42 History of Present Illness Initial Comments 78-year-old female presents for left eye redness. Patient reports that she had a left eye infection, she was diagnosed with a conjunctivitis few days ago, and she has been taking eye drops. She reports a since then it has spread to the right eye. This morning she woke up in the areas blood to the left eye, which concerned the family. She also has a mild headache. No vision changes. On clinical exam and there is a subconjunctival hemorrhage. Otherwise unremarkable exam. No systemic symptoms at this time. Allergies: Coded Allergies: sulfamethoxazole (Unverified Allergy, Intermediate, 05/14/14) RASH / ITCHING trimethoprim (Unverified Allergy, Intermediate, 05/14/14) RASH / ITCHING Uncoded Allergies: FINOFIBRATE (Allergy, Mild, RASH, ITCHING, 09/30/12) Home Meds Active Scripts Amoxicillin/Potassium Clav (Augmentin 500-125 Tablet) 500 Mg-125 Mg Tablet, 1 TAB PO BID for 7 Days, #14 TAB 0 Refills Prov:JOHNNY CHANDLER 09/12/24 Reported Medications Levothyroxine Sodium (Levothyroxine Sodium) 25 Mcg Tablet, 1 TAB PO DAILY 09/11/24 Oxybutynin Chloride (Oxybutynin Chloride ER) 10 Mg Tab.er.24, 1 TAB PO DAILY 09/11/24 Gabapentin (Gabapentin) 100 Mg Capsule, 100 CAP PO BID 09/11/24 Atorvastatin Calcium (Atorvastatin Calcium) 40 Mg Tablet, 1 TAB PO DAILY 09/11/24 Amlodipine Besylate/Benazepril (Amlodipine-Benazepril 10-40 mg) 1 Each Capsule, 1 EACH PO AM, CAP 09/06/17 Discontinued Reported Medications Pravastatin Sodium (Pravastatin Sodium) 20 Mg Tablet, 20 MG PO HS, TAB 09/06/17 Vit B Cmplx 3/FA/Vit C/Biotin (Vol-Care Rx Tablet) 1 Each Tablet, 1 EACH PO AM, TAB 09/06/17 [Levothyroxine ] No Conflict Check, 25 MCG PO ACBKFST 05/14/14 Discontinued Scripts Bill/Polymyx B Sulf/Dexameth (Maxitrol Ophth Susp) 3.5 Mg/Ml-10,000 Unit/Ml-0.1 % Opsus, 1 DROP OP QID for 7 Days, #5 ML 0 Refills Prov:JANICE SALAZAR MD 09/11/24 Metronidazole (Metronidazole) 500 Mg Tablet, 500 MG PO TID for 5 Days, #15 TAB Prov:ALLEN SHANNON [facility] 12/06/17 Levofloxacin (Levaquin) 500 Mg Tablet, 500 MG PO DAILY for 5 Days, #5 TAB Prov:ALLEN SHANNON [facility] 12/06/17 Past Medical History Past Medical History: High Cholesterol, Hypertension Medical History Other: THYROID Past Surgical History: Other Surgical History Other: INTESTINES ROS Dictation CONSTITUTIONAL: No chills, no fever, no weakness, no diaphoresis, no malaise. HEAD/FACE: No signs of trauma. EENT: Eye itching RESPIRATORY: No cough, no orthopnea, no SOB, no stridor, no wheezing. CARDIOVASCULAR: No chest pain, no edema, no palpitations, no syncope. GASTROINTESTINAL/ABDOMINAL: No abdominal pain, no constipation, no diarrhea, no nausea, no vomiting. GENITOURINARY: No abnormal discharge, no dysuria, no frequent urination, no hematuria. No complaints of pain in the genitals. MUSCULOSKELETAL: No back pain, no gout, no joint pain, no joint swelling, no muscle pain, no muscle stiffness, no neck pain. INTEGUMENTARY: No change in color, no change in hair/nails, no dryness, no lesion, no lumps, no rash. NEUROLOGICAL/PSYCH: No anxiety, not depressed, no emotional problem, no headache, no numbness, no pre-existing deficit, no history of seizures, no tremors, no weakness. HEMATOLOGIC/LYMPHATIC: Not anemic, no history of blood clots, no apparent bleeding, no bruising, glands not swollen. All Systems Negative, Except as Noted. Physical Exam Physical Exam Dictation VITAL SIGNS: Reviewed. GENERAL APPEARANCE: Alert, oriented x3, no acute distress HEAD AND FACE: Non-traumatic. EYES: PERRL, some conjunctival injection on both eyes, left eye has a subconjunctival hemorrhage medial side EARS: Pinnas intact and no signs of trauma or erythema. Ear canals clear and no discharge. TMs no erythema. NOSE: No discharge, no bleeding. OROPHARYNX: Mouth normal, teeth no caries, tongue pink. Pharynx clear, no erythema. Tonsils no exudates, no abscesses noted. Mucous membrane moist. NECK: Supple, non-tender, no thyromegaly, no masses, no JVD, no bruits. BREAST: Deferred. CHEST: No tenderness, no crepitus, no paradoxical movement, no retractions. LUNGS: Clear, well-ventilated, symmetric, no rales, no wheezing, no rhonchi, no stridor, good breath sounds bilaterally. HEART: Regular rate, regular rhythm, no murmur, no gallops. VASCULAR: No peripheral edema. ABDOMEN: Soft, positive bowel sounds, nondistended, no guarding, nontender, no rebound, no masses no hepatomegaly, no splenomegaly, no Ng's sign, no hernias. RECTAL: Deferred. GENITAL: Deferred. NEUROLOGICAL: Normal speech, gross motor function intact, gross sensory function intact. MUSCULOSKELETAL: Neck nontender, full range of motion, back nontender, full range of motion. EXTREMITIES: Nontender, full range of motion. SKIN: Color pink, dry, no turgor, no rash, no lacerations, no abrasions, no contusions. LYMPHATICS: Deferred. MDM CC: Left eye redness Historian: Patient Comorbidities: Hypertension dyslipidemia CKD Limitations by social determinants of health: None Differential diagnosis: Subconjunctival hemorrhage, conjunctivitis, other. Vital signs are stable. Clinical exam shows a subconjunctival hemorrhage of the left. PERRL, EOMI otherwise. She does have some very mild conjunctivitis in the left eye that appears to have spread to the right eye. I suspect viral in nature, no major purulence. The redness of the eye. Today and it appears to be a subconjunctival hemorrhage, I suspect that she was itching. No indication for further treatment at this time. She is currently already being treated with eye drops. We will recommend PCP follow up. ED Course Vital Signs Date Time Temp Pulse Resp B/P (MAP) Pulse Ox O2 Delivery O2 Flow Rate FiO2 09/14/24 10:45 98.6 72 16 106/62 98 Room Air 0 DX & DISP Disposition: Discharge Departure Impression: Primary Impression: Conjunctivitis Additional Impression: Subconjunctival hemorrhage Condition: Stable Referrals: RESHMA CHANDLER DO (PCP) The redness on URI is a subconjunctival hemorrhage. This is homeless and often caused by minor trauma such as straining, coughing, sneezing or rubbing the eye. You likely have an underlying conjunctivitis, or mild eye infection. Please continue with the eyedrops he has been using. Regarding the subconjunctival hemorrhage, these are often painless and resolve on its own in two weeks or so. It is similar to a bruise so the color may change as it is absorbed. There is generally no treatment necessary for a subconjunctival hemorrhage. Please return to the emergency department if you have any concerns. I do recommend that you follow up with an eye doctor within the next few days regarding the conjunctivitis if your symptoms do not improve. JOSEPH SANCHEZ DO Sep 14, 2024 10:59
== END 2024-09-14 11:13 | disposition home or self-care (01) ==
LOC: EDH 10:41
DX: H10.9 Unspecified conjunctivitis (principal); H11.32 Conjunctival hemorrhage, left eye; I12.9 Hypertensive chronic kidney disease with stage 1 through stage 4 chronic kidney disease, or unspecified chronic kidney disease; N18.9 Chronic kidney disease, unspecified; E78.00 Pure hypercholesterolemia, unspecified; Z79.890 Hormone replacement therapy; Z79.899 Other long term (current) drug therapy; Z88.1 Allergy status to other antibiotic agents; Z88.2 Allergy status to sulfonamides
CPT/HCPCS: 99281; 99282